=== PATIENT | female | born 1960 | race Two or more races ===

== ENCOUNTER 2022-08-13 07:30 | Day surgery (SDC) | payer OTHER ==
[~2022-08-13] VITALS: Ht 152.4 cm; Wt 58.5 kg
[2022-08-13] MEDS ORDERED: CILOXAN5 ML OTIC (09:20)
[2022-08-13] MEDS ORDERED: CEPHALEXIN500 MG PO (09:21)
== END 2022-08-13 12:10 | disposition home or self-care (01) ==
LOC: CIR.AMB 07:30
PROVIDERS: ATTEND Otolaryngology Otology & Neurotology
DX: H80.92 Unspecified otosclerosis, left ear (principal); H90.A12 Conductive hearing loss, unilateral, left ear with restricted hearing on the contralateral side; Z20.822 Contact with and (suspected) exposure to COVID-19; Z88.6 Allergy status to analgesic agent

== ENCOUNTER 2023-07-10 18:17 | Emergency (ER) | payer OTHER ==
[~2023-07-10] VITALS: Ht 149.9 cm; Wt 59.0 kg
[~2023-07-10 18:17] MED LIST: CEPHALEXIN500 MG PO; CILOXAN5 ML OTIC
== END 2023-07-10 20:44 | disposition home or self-care (01) ==
LOC: ER 18:17
DX: S52.592A Other fractures of lower end of left radius, initial encounter for closed fracture (principal); S52.222A Displaced transverse fracture of shaft of left ulna, initial encounter for closed fracture; W01.0XXA Fall on same level from slipping, tripping and stumbling without subsequent striking against object, initial encounter; Y93.89 Activity, other specified; Y92.89 Other specified places as the place of occurrence of the external cause; Z88.6 Allergy status to analgesic agent; Z91.018 Allergy to other foods

== ENCOUNTER 2023-07-12 18:41 | Emergency (ER) | payer OTHER ==
[~2023-07-12] VITALS: Ht 152.4 cm; Wt 59.0 kg
== END 2023-07-13 01:11 | disposition home or self-care (01) ==
LOC: ER 18:42
DX: S62.102A Fracture of unspecified carpal bone, left wrist, initial encounter for closed fracture (principal); X58.XXXA Exposure to other specified factors, initial encounter; Y93.89 Activity, other specified; Y92.89 Other specified places as the place of occurrence of the external cause; Y99.8 Other external cause status; Z47.89 Encounter for other orthopedic aftercare; E11.9 Type 2 diabetes mellitus without complications; Z88.6 Allergy status to analgesic agent; Z91.018 Allergy to other foods